=== PATIENT | female | born 1960 | race African-American/Black ===

== ENCOUNTER 2019-08-01 21:36 | Emergency (ER) | payer MEDICARE, OTHER ==
[~2019-08-01] VITALS: Ht 167.6 cm; Wt 113.4 kg
[2019-08-01] MEDS ORDERED: Ketorolac 30mg Inj IV ONE (21:45)
[2019-08-01] MEDS ORDERED: Methocarbamol 750mg tab ORAL ONE (21:45)
[2019-08-01] MEDS ORDERED: Omnipaque-300 100ml vial INJ PRN (21:45)
[2019-08-01] MEDS ORDERED: HYDROmorphone 1mg/ml Carpuject IVP ONE (21:45)
[2019-08-01 21:50] VITALS: BP 100/70
--- NOTE | 2019-08-01 21:50 | NUR ---
ED Nurse Note: Pt brought into ED from concert by [id number] for c/o pain and n/v/d onset a few hours [employer]. Pt states she was at a jazz concert and had sudden onset of pain. Pt states pain is in abdomen, back and into shoulders and is cramping in nature. Pt is aaox4, no cardiac or respiratory distress noted. Will continue to monitor.
[2019-08-01 22:27] LABS: ANION GAP 9 mmol/L (5-15); BLOOD UREA NITROGEN 23 mg/dL (7-18); CALCIUM 11.2 MG/DL (8.5-10.1); CARBON DIOXIDE 29 MMOL/L (21-32); CHLORIDE 100 MMOL/L (98-107); CREATININE 2.3 MG/DL (0.55-1.30); SODIUM 138 MMOL/L (136-145)
[2019-08-01 22:33] LABS: ALANINE AMINOTRANSFERASE 32 U/L (12-78); ALBUMIN 4.1 G/DL (3.4-5.0); ALBUMIN/GLOBULIN RATIO 0.6 (1.0-2.7); ALKALINE PHOSPHATASE 104 U/L (46-116); ASPARTATE AMINO TRANSFERASE 46 U/L (15-37); BASOPHILS % (AUTO) 1.1 % (0.0-2.0); BILIRUBIN,TOTAL 0.4 MG/DL (0.2-1.0); HEMOGLOBIN 15.9 G/DL (12.0-16.0); MEAN CORPUSCULAR VOLUME 95 FL (80-99); MONOCYTES % (AUTO) 7.2 % (1.0-10.0); NEUTROPHILS % (AUTO) 55.7 % (45.0-75.0); PLATELET COUNT 356 K/UL (150-450); RED BLOOD COUNT 5.47 M/UL (4.20-5.40); RED CELL DISTRIBUTION WIDTH 13.2 % (11.6-14.8); WHITE BLOOD COUNT 7.9 K/UL (4.8-10.8)
--- NOTE | 2019-08-01 22:40 | Emergency Room Report ---
History of Present Illness General Chief Complaint: Nausea, Vomiting, and Diarrhea Source: Patient Present Illness HPI 59-year-old female presents with acute nausea and vomiting, 2 hours prior to arrival, abdominal cramps, and clear ileostomy output, patient was at an outside function no known aggravating relieving factors severity is moderate, constant, patient denies any blood, no fevers no chills no chest pain or shortness of breath patient presents via EMS Allergies: Coded Allergies: MORPHINE (Unverified Allergy, Unknown, 08/01/19) SULFA (SULFONAMIDE ANTIBIOTICS) (Unverified Allergy, Unknown, 08/01/19) Patient History Past Medical History: see triage record Last Menstrual Period: na Reviewed Nursing Documentation: PMH: Agreed; PSxH: Agreed Review of Systems All Other Systems: negative except mentioned in HPI Physical Exam Vital Signs Date Time Temp Pulse Resp B/P (MAP) Pulse Ox O2 Delivery O2 Flow Rate FiO2 08/01/19 21:24 98.2 100 16 100/70 (80) 98 Room Air Sp02 EP Interpretation: reviewed, normal General Appearance: well appearing, no apparent distress, alert Head: normocephalic, atraumatic Eyes: bilateral eye PERRL, bilateral eye EOMI ENT: uvula midline, moist mucus membranes Neck: supple, thyroid normal, supple/symm/no masses Respiratory: lungs clear, no respiratory distress, no retraction, no accessory muscle use Cardiovascular #1: normal peripheral pulses, regular rate, rhythm, no edema, no gallop, no murmur Gastrointestinal: non tender, soft, no guarding, no rebound Musculoskeletal: normal inspection Neurologic: alert, oriented x3 Psychiatric: mood/affect normal Skin: no rash, warm/dry Medical Decision Making Diagnostic Impression: Primary Impression: Nausea & vomiting Qualified Codes: R11.2 - Nausea with vomiting, unspecified Additional Impression: Abdominal pain Qualified Codes: R10.84 - Generalized abdominal pain ER Course 59-year-old female presents with acute nausea and vomiting differential diagnosis includes obstruction, hernia, diverticulitis, appendicitis Patient labs unremarkable except for some CKD, patient is aware she has CKD she states that her doctor made her aware and she is following up with her doctor for treatment Patient given pain meds with significant control of her pain CT scan negative for acute pathology Counseled patient disposition home with return precautions Laboratory Tests Test 08/01/19 21:45 08/01/19 22:50 White Blood Count 7.9 K/UL (4.8-10.8) Red Blood Count 5.47 M/UL (4.20-5.40) H Hemoglobin 15.9 G/DL (12.0-16.0) Hematocrit 52.0 % (37.0-47.0) H Mean Corpuscular Volume 95 FL (80-99) Mean Corpuscular Hemoglobin 29.1 PG (27.0-31.0) Mean Corpuscular Hemoglobin Concent 30.6 G/DL (32.0-36.0) L Red Cell Distribution Width 13.2 % (11.6-14.8) Platelet Count 356 K/UL (150-450) Mean Platelet Volume 6.3 FL (6.5-10.1) L Neutrophils (%) (Auto) 55.7 % (45.0-75.0) Lymphocytes (%) (Auto) 35.0 % (20.0-45.0) Monocytes (%) (Auto) 7.2 % (1.0-10.0) Eosinophils (%) (Auto) 1.0 % (0.0-3.0) Basophils (%) (Auto) 1.1 % (0.0-2.0) Sodium Level 138 MMOL/L (136-145) Potassium Level 4.0 MMOL/L (3.5-5.1) Chloride Level 100 MMOL/L (98-107) Carbon Dioxide Level 29 MMOL/L (21-32) Anion Gap 9 mmol/L (5-15) Blood Urea Nitrogen 23 mg/dL (7-18) H Creatinine 2.3 MG/DL (0.55-1.30) H Estimate Glomerular Filtration Rate 26.5 mL/min (>60) Glucose Level 151 MG/DL (74-106) H Calcium Level 11.2 MG/DL (8.5-10.1) H Total Bilirubin 0.4 MG/DL (0.2-1.0) Aspartate Amino Transferase (AST) 46 U/L (15-37) H Alanine Aminotransferase (ALT) 32 U/L (12-78) Alkaline Phosphatase 104 U/L (46-116) Troponin I 0.000 ng/mL (0.000-0.056) Total Protein 11.1 G/DL (6.4-8.2) H Albumin 4.1 G/DL (3.4-5.0) Globulin 7.0 g/dL Albumin/Globulin Ratio 0.6 (1.0-2.7) L Lipase 334 U/L (73-393) Urine Color Yellow Urine Appearance Clear Urine pH 5 (4.5-8.0) Urine Specific [place] 1.030 (1.005-1.035) Urine Protein 3+ (NEGATIVE) H Urine Glucose (UA) Negative (NEGATIVE) Urine Ketones 1+ (NEGATIVE) H Urine Blood 1+ (NEGATIVE) H Urine Nitrite Negative (NEGATIVE) Urine Bilirubin 1+ (NEGATIVE) H Urine Ictotest Negative (NEGATIVE) Urine Urobilinogen 4 MG/DL (0.0-1.0) H Urine Leukocyte Esterase 3+ (NEGATIVE) H Urine RBC Pending Urine WBC Pending Urine Squamous Epithelial Cells Pending Urine Bacteria Pending EKG Diagnostic Results EKG Time: 21:49 EP Interpretation: NSR, rate 92, QTc 457, no acute ST elevations, normal axis CT/MRI/US Diagnostic Results CT/MRI/US Diagnostic Results : Impression Procedure: CT Abdomen Pelvis WO Contrast EXAM: CT Abdomen and Pelvis With Intravenous Contrast CLINICAL HISTORY: ABD PAIN TECHNIQUE: Axial computed tomography images of the abdomen and pelvis with intravenous contrast. CTDI is 37 mGy and DLP is 2163 mGy-cm. One or more of the following dose reduction techniques were used: automated exposure control, adjustment of the mA and/or kV according to patient size, use of iterative reconstruction technique. COMPARISON: No relevant prior studies available. FINDINGS: Limitations: Limited due to metallic artifact. Lung bases: Bibasal infiltrates/atelectasis. ABDOMEN: Liver: Unremarkable. Gallbladder and bile ducts: Unremarkable. No calcified stones. Pancreas: Unremarkable. Spleen: Unremarkable. Adrenals: Unremarkable. Kidneys and ureters: Unremarkable. No hydronephrosis. Stomach and bowel: Bowel and colonic postop changes. Right ventral ostomy. Moderate parastomal hernia containing bowel. Moderate-large medial left ventral hernia containing bowel. No incarceration/strangulation. Mildly prominent small bowel which may be ileus. No mechanical bowel obstruction. PELVIS: Appendix: No findings to suggest acute appendicitis. Bladder: Unremarkable. Reproductive: Hysterectomy. ABDOMEN and PELVIS: Intraperitoneal space: No free air. Bones/joints: L4-5 surgical fusion and laminectomy. Soft tissues: Unremarkable. Vasculature: Unremarkable. Lymph nodes: Unremarkable. IMPRESSION: Bowel and colonic postop changes. Right ventral ostomy. Moderate parastomal hernia containing bowel. Moderate-large medial left ventral hernia containing bowel. No incarceration/strangulation. Mildly prominent small bowel which may be ileus. No mechanical bowel obstruction. Dictated By: Curt Rios MD Electronically Signed By: Curt Rios MD Signed Date/Time 08/01/19 2655 CC: Tommie Stone MD Last Vital Signs Date Time Temp Pulse Resp B/P (MAP) Pulse Ox O2 Delivery O2 Flow Rate FiO2 08/01/19 21:24 98.2 100 16 100/70 (80) 98 Room Air Disposition: HOME, SELF-CARE Condition: Stable Scripts Lidocaine Patch* (Lidoderm Patch*) 1 Each Adh..patch 1 PATCH TOPIC DAILY PRN for For Pain, #7 PATCH 0 Refills Patch(es) may remain in place for up to 12 hours in any 24-hour period. Prov: Tommie Stone MD 08/02/19 Referrals: [facility]as[facility] O[facility]. [facility] Patient Instructions: Chronic Kidney Disease, [id number], Nausea and Vomiting , Adult, [id number]-[id number] Additional Instructions: The patient was provided with discharge instructions, notified to follow-up with a primary care doctor and or specialist in the next 24-48 hours, and to return to the ED if they have worsening of their symptoms. Please note that this report is being documented using DRAGON technology. This can lead to erroneous entry secondary to incorrect interpretation by the dictating instrument. Tommie Stone MD Aug 01, 2019 22:40
--- NOTE | 2019-08-01 22:50 | NUR ---
ED Nurse Note: Pt ambulated to restroom, unable to provide enough urine for sample at this time.
--- NOTE | 2019-08-01 22:58 | NUR ---
ED Nurse Note: Urine specimen sent to lab.
[2019-08-01 23:01] LABS: APPEARANCE,URINE CLEAR; BILIRUBIN, URINE 1+ (NEGATIVE); GLUCOSE, URINE (UA) NEGATIVE (NEGATIVE); KETONES,URINE 1+ (NEGATIVE); LEUKOCYTE ESTERASE ,URINE 3+ (NEGATIVE); NITRITE,URINE NEGATIVE (NEGATIVE); PH,URINE 5 (4.5-8.0); PROTEIN,URINE 3+ (NEGATIVE); UROBILINOGEN,URINE 4 MG/DL (0.0-1.0)
[2019-08-01 23:11] LABS: COLOR,URINE YELLOW
--- NOTE | 2019-08-01 23:44 | Diagnostic Imaging Report ---
EXAM: CT Abdomen and Pelvis With Intravenous Contrast CLINICAL HISTORY: ABD PAIN TECHNIQUE: Axial computed tomography images of the abdomen and pelvis with intravenous contrast. CTDI is 37 mGy and DLP is 2163 mGy-cm. One or more of the following dose reduction techniques were used: automated exposure control, adjustment of the mA and/or kV according to patient size, use of iterative reconstruction technique. COMPARISON: No relevant prior studies available. FINDINGS: Limitations: Limited due to metallic artifact. Lung bases: Bibasal infiltrates/atelectasis. ABDOMEN: Liver: Unremarkable. Gallbladder and bile ducts: Unremarkable. No calcified stones. Pancreas: Unremarkable. Spleen: Unremarkable. Adrenals: Unremarkable. Kidneys and ureters: Unremarkable. No hydronephrosis. Stomach and bowel: Bowel and colonic postop changes. Right ventral ostomy. Moderate parastomal hernia containing bowel. Moderate-large medial left ventral hernia containing bowel. No incarceration/strangulation. Mildly prominent small bowel which may be ileus. No mechanical bowel obstruction. PELVIS: Appendix: No findings to suggest acute appendicitis. Bladder: Unremarkable. Reproductive: Hysterectomy. ABDOMEN and PELVIS: Intraperitoneal space: No free air. Bones/joints: L4-5 surgical fusion and laminectomy. Soft tissues: Unremarkable. Vasculature: Unremarkable. Lymph nodes: Unremarkable. IMPRESSION: Bowel and colonic postop changes. Right ventral ostomy. Moderate parastomal hernia containing bowel. Moderate-large medial left ventral hernia containing bowel. No incarceration/strangulation. Mildly prominent small bowel which may be ileus. No mechanical bowel obstruction.
[2019-08-02] MEDS ORDERED: HYDROmorphone 1mg/ml Carpuject IVP ONE (00:15)
--- NOTE | 2019-08-02 00:20 | NUR ---
ED Nurse Note: Pt still c/o pain at this time, ERMD aware. Will carry out medication order.
[2019-08-02] MEDS ORDERED: LIDODERM700 M1 TOPIC (00:24)
--- NOTE | 2019-08-02 01:02 | Diagnostic Imaging Report ---
EXAM: XR Chest, 1 View CLINICAL HISTORY: ABD PAIN TECHNIQUE: Frontal view of the chest. COMPARISON: No relevant prior studies available. FINDINGS: Lungs: Bilateral mild pulmonary edema/infiltrates and/or chronic lung changes. Pleural space: Unremarkable. No pneumothorax. Heart: Unremarkable. No cardiomegaly. Mediastinum: Unremarkable. Bones/joints: Unremarkable. IMPRESSION: Bilateral mild pulmonary edema/infiltrates and/or chronic lung changes.
[2019-08-02 01:05] VITALS: BP 110/65
--- NOTE | 2019-08-02 01:05 | NUR ---
ER DISCHARGE NOTE: Patient is cleared to be discharged per ERMD, pt is aox4, on room air, with stable vital signs. pt was given dc and prescription instructions, pt was able to verbalize understanding, pt id band and iv site removed without complications. pt is able to ambulate with steady gait. pt took all belongings.
== END 2019-08-02 01:05 | disposition home or self-care (01) ==
LOC: EDBD 21:36 → EMR 22:00
DX: R11.2 Nausea with vomiting, unspecified (principal); R10.84 Generalized abdominal pain; Z88.2 Allergy status to sulfonamides; Z88.6 Allergy status to analgesic agent; N18.9 Chronic kidney disease, unspecified
CPT/HCPCS: 36415; 71045; 74176; 80053; 81003; 83690; 84484; 85025; 93005; 96361; 96374; 96375; 96376; 99284; J1170; J1885; J2405; J7030